=== PATIENT | male | born 1995 | race Caucasian/White ===

== ENCOUNTER 2018-07-16 16:31 | Emergency (ER) | payer OTHER, SELFPAY ==
[2018-07-16 16:35] VITALS: BP 135/82; PULSE 118; RESP 16; TEMP 36.3; O2SAT 99; BMI 31.2
--- NOTE | 2018-07-16 18:38 | DI.RAD.S_ITS ---
PROCEDURE: XR CHEST 1V INDICATIONS: chest pain TECHNIQUE: One view of the chest was acquired. COMPARISON: None. FINDINGS: Surgical changes and devices: None. Lungs and pleura: No pleural effusions or pneumothorax. Lungs are clear. Mediastinum: Mediastinal contours appear normal. Heart size is normal. Bones and chest wall: No suspicious bony lesions. Overlying soft tissues appear unremarkable. IMPRESSION: No acute cardiopulmonary disease. Dictated by: Sathish Razo M.D. on 07/16/2018 at 19:43 Approved by: Sathish Razo M.D. on 07/16/2018 at 19:45
[2018-07-16 18:49] VITALS: BP 124/76; PULSE 54; RESP 18; O2SAT 100
[2018-07-16 19:10] LABS: Add Manual Diff / Slide Review NO; Basophils Percent Auto 0.6 % (0-2); Eosinophils Percent Auto 1.9 % (2-4); Hematocrit 45.2 % (41-53); Hemoglobin 15.6 g/dL (13.5-17.5); Lymphocytes Percent Auto 38.1 % (25-40); Mean Corpuscular HGB Conc 34.5 % (30-36); Mean Corpuscular Hemoglobin 31.7 PG (26-34); Monocytes Percent Auto 11.5 % (3-14); Neutrophils Absolute Auto 3200 /uL (3000-5900); Neutrophils Percent Auto 47.9 % (50-75); Platelet Count 170 X10^3/uL (150-400); Red Blood Cell Count 4.91 X10^6/uL (4.5-5.9); Red Cell Distribution Width 13.2 % (11.6-14.8); White Blood Cell Count 6.6 X10^3/uL (4.5-11.0)
[2018-07-16 19:19] LABS: INR 1.1 (0.9-1.3); Prothrombin Time 11.7 SECONDS (10.1-12.7)
[2018-07-16 19:22] LABS: PTT Partial Thromboplastin Tim 30 SECONDS (26.4-36.2)
[2018-07-16 19:27] LABS: Alanine Aminotransferase 28 IU/L (21-72); Albumin 4.4 g/dL (3.5-5.0); Albumin Globulin Ratio 1.6 (1.0-2.8); Alkaline Phosphatase 38 U/L (38-126); Aspartate Aminotransferase 29 IU/L (17-59); Bilirubin Total 0.5 mg/dL (0.2-1.3); Blood Urea Nitrogen 22 mg/dL (9-20); Calcium 9.4 mg/dL (8.4-10.2); Carbon Dioxide 28 mmol/L (22-32); Chloride 103 mmol/L (98-107); Creatine Kinase 287 U/L (55-170); Estimated Glomerular Filt Rate > 60.0 mL/min (>60); Globulin 2.8 g/dL (1.7-4.1); Glucose 84 mg/dL (70-100); HEMOLYSIS < 15 (0-50); Lipase 93 U/L (23-300); Potassium 4.2 mmol/L (3.4-5.1); Sodium 143 mmol/L (137-145); Total Protein 7.2 g/dL (6.3-8.2)
[2018-07-16 19:42] LABS: Troponin I < 0.012 ng/mL (0.01-0.034)
[2018-07-16 19:44] LABS: CKMB % Relative Index 0.2 % (1.5-5.0); Creatine Kinase MB 0.71 ng/mL (<2.37)
--- NOTE | 2018-07-16 20:13 | ED_ITS ---
HPI - Chest Pain <LOLI Hua - Last Filed: 07/16/18 22:18> General Chief Complaint: Chest Pain Stated Complaint: CHEST PAIN Time Seen by Provider: 07/16/18 20:13 Source: patient Mode of arrival: ambulatory Limitations: no limitations History of Present Illness HPI narrative: 23 year old healthy male is an everyday smoker here for complaint of having a left-sided sternal chest pain for the last month. He reports he has had the pain on and off. he reports increased pain at times with strenuous activity and also stressed. He denies any relievers of the pain. He denies any shortness of breath. No fevers no chills. No nausea or vomiting. He denies any trauma to the chest wall. he is ambulatory to the emergency room. No other concerns or complaints at this time. Related Data Allergies Allergy/AdvReac Type Severity Reaction Status Date / Time No Known Drug Allergies Allergy Verified 07/16/18 16:50 Review of Systems <LOLI Hua - Last Filed: 07/16/18 22:18> Review of Systems All systems reviewed & are unremarkable except as noted in HPI and below Constitutional Denies chills, Denies fever(s), Denies lethargy and Denies weakness Eyes Denies change in vision, Denies eye discharge, Denies irritation and Denies loss of vision ENT Ears, Nose, Mouth, and Throat: Denies change in voice, Denies neck pain and Denies sore throat Cardiovascular Reports chest pain, Denies irregular heart rhythm, Denies lightheadedness, Denies palpitations, Denies dyspnea, Denies dyspnea on exertion and Denies orthopnea Respiratory Denies cough, Denies dyspnea, Denies dyspnea on exertion and Denies wheezing Gastrointestinal Gastrointestinal: Denies abdominal pain, Denies change in bowel habits, Denies diarrhea, Denies nausea and Denies vomiting Genitourinary Denies hematuria, Denies flank pain, Denies urinary incontinence and Denies urinary urgency Musculoskeletal Denies neck pain Integumentary/Breasts Denies pruritus, Denies erythema, Denies rash and Denies wounds Neurologic Denies confusion, Denies loss of vision and Denies weakness Psychiatric Denies anxiety, Denies confusion, Denies depression, Denies homicidal ideation and Denies suicidal ideation Endocrine Denies palpitations Hematologic/Lymphatic Denies easy bruising Allergic/Immunologic Denies wheezing Exam <LOLI Hua - Last Filed: 07/16/18 22:18> Initial Vital Signs Initial Vital Signs: Vital Signs Temperature 97.3 F L 07/16/18 16:35 Pulse Rate 118 H 07/16/18 16:35 Respiratory Rate 16 07/16/18 16:35 Blood Pressure 135/82 07/16/18 16:35 Pulse Oximetry 99 07/16/18 16:35 Const General: cooperative and well developed Nutritional Appearance: well nourished Orientation: alert, awake, oriented x3 and not confused HENMT Mouth: oral mucosae normal and moist mucous membranes Eyes Conjunctivae: conjunctivae normal Sclera: sclerae normal Pupils: PERRL EOM: EOM intact bilaterally Chest Chest: normal inspection of the chest Resp Effort & Inspection: normal respiratory effort, able to speak in complete sentences, no respiratory distress and no use of accessory muscles Auscultation: clear to auscultation bilaterally, no rales, no rhonchi and no wheezes Cardio Rate: regular rate Rhythm: regular rhythm Heart Sounds: no click, no gallops, no murmurs and no rubs Pulses: normal peripheral pulses Skin General: no rashes or lesions noted, No jaundice and No petechiae Neuro General: alert, oriented x3, gait normal and no focal motor deficits Speech: speech normal <Abner Ngo DO - Last Filed: 07/16/18 23:59> Initial Vital Signs Initial Vital Signs: Vital Signs Temperature 97.3 F L 07/16/18 16:35 Pulse Rate 118 H 07/16/18 16:35 Respiratory Rate 16 07/16/18 16:35 Blood Pressure 135/82 07/16/18 16:35 Pulse Oximetry 99 07/16/18 16:35 Scores <LOLI Hua - Last Filed: 07/16/18 22:18> HEART Score Heart Score history: Slightly Suspicious Heart Score EKG: Normal Heart Score Age: < 45 years old Heart Score risk factors: 1-2 risk factors Heart Score troponin: < or = to normal limit Heart Score Total: 1 Course <LOLI Hua Last Filed: 07/16/18 22:18> Orders Ordered: ED Orders 07/16/18 18:38 XR chest 1V Stat 09/28/18 18:52 Complete Blood Count AUTO DIFF Stat Comprehensive Metabolic Panel Stat Lipase Stat Partial Thromboplastin Time Stat Prothrombin Time INR Stat Troponin & CK Cardiac Panel Stat Vital Signs - 8 hr 07/16/18 16:35 07/16/18 18:49 07/16/18 20:40 Temperature 97.3 F L 98.6 F Pulse Rate 118 H 54 L 56 L Respiratory Rate 16 18 16 Blood Pressure 135/82 Blood Pressure [Left Arm] 124/76 106/52 L Pulse Oximetry 99 100 98 <Abner Ngo DO - Last Filed: 07/16/18 23:59> Orders Ordered: ED Orders 07/16/18 18:38 XR chest 1V Stat 07/16/18 18:52 Complete Blood Count AUTO DIFF Stat Comprehensive Metabolic Panel Stat Lipase Stat Partial Thromboplastin Time Stat Prothrombin Time INR Stat Troponin & CK Cardiac Panel Stat Vital Signs - 8 hr 07/16/18 16:35 07/16/18 18:49 07/16/18 20:40 Temperature 97.3 F L 98.6 F Pulse Rate 118 H 54 L 56 L Respiratory Rate 16 18 16 Blood Pressure 135/82 Blood Pressure [Left Arm] 124/76 106/52 L Pulse Oximetry 99 100 98 MDM - Chest Pain <LOLI Hua - Last Filed: 07/16/18 22:18> Lab Data Result diagrams: 07/16/18 18:52 07/16/18 18:52 Lab Results 07/16/18 07/16/18 07/16/18 Range/Units 18:52 18:52 18:52 WBC 6.6 (4.5-11.0) X10^3/uL RBC 4.91 (4.5-5.9) X10^6/uL Hgb 15.6 (13.5-17.5) g/dL Hct 45.2 (41-53) % MCV 92.0 (80-100) fL MCH 31.7 (26-34) PG MCHC 34.5 (30-36) % RDW 13.2 (11.6-14.8) % Plt Count 170 (150-400) X10^3/uL Neut % (Auto) 47.9 L (50-75) % Lymph % (Auto) 38.1 (25-40) % [place] % (Auto) 11.5 (3-14) % Eos % (Auto) 1.9 L (2-4) % Baso % (Auto) 0.6 (0-2) % Neut # (Auto) 3200 (8018-8547) /uL PT 11.7 (10.1-12.7) SECONDS INR 1.1 (0.9-1.3) APTT 30 (26.4-36.2) SECONDS Sodium 143 (137-145) mmol/L Potassium 4.2 (3.4-5.1) mmol/L Chloride 103 (98-107) mmol/L Carbon Dioxide 28 (22-32) mmol/L BUN 22 H (9-20) mg/dL Creatinine 1.10 (0.66-1.25) mg/dL Estimated GFR > 60.0 (>60) mL/min BUN/Creatinine Ratio 20.0 (6-22) Glucose 84 (70-100) mg/dL Calcium 9.4 (8.4-10.2) mg/dL Total Bilirubin 0.5 (0.2-1.3) mg/dL AST 29 (17-59) IU/L ALT 28 (21-72) IU/L Alkaline Phosphatase 38 (38-126) U/L Total Creatine Kinase 287 H (55-170) U/L CK-MB (CK-2) 0.71 (<2.37) ng/mL CK-MB (CK-2) Rel Index 0.2 L (1.5-5.0) % Troponin I < 0.012 (0.01-0.034) ng/mL Total Protein 7.2 (6.3-8.2) g/dL Albumin 4.4 (3.5-5.0) g/dL Globulin 2.8 (1.7-4.1) g/dL Albumin/Globulin Ratio 1.6 (1.0-2.8) Lipase 93 (23-300) U/L Imaging Data Chest x-ray: Radiologist's impression: Signed Patient: [facility]ES [facility]#: [id number] : 1995Acct:[id number] Age/Sex: 23 / MDate of Service: 07/16/18 Loc: ED Accession Number: [id number] Procedure: XR chest 1V Ordering Provider: Eloy Dillon PROCEDURE: XR CHEST 1V INDICATIONS: chest pain TECHNIQUE: One view of the chest was acquired. COMPARISON: None. FINDINGS: Surgical changes and devices: None. Lungs and pleura: No pleural effusions or pneumothorax. Lungs are clear. Mediastinum: Mediastinal contours appear normal. Heart size is normal. Bones and chest wall: No suspicious bony lesions. Overlying soft tissues appear unremarkable. IMPRESSION: No acute cardiopulmonary disease. Dictated by: Sathish Razo M.D. on 07/16/2018 at 19:43 Approved by: Sathish Razo M.D. on 07/16/2018 at 19:45 ECG Data Interpretation: EKG shows normal sinus rhythm with no ST elevation or depression. Ventricular rate is 68. PRl of 140. QRS of 101. QT of 395. MDM Narrative Medical decision making narrative: EKG shows sinus rhythm with no st elevation or depression. No ectopy. CBC and Chem panel were obtained were unremarkable heart score was 1 chest x-ray was negative for any acute findings. Cardiac enzymes were obtained were negative. Signs and symptoms symptoms present as chest wall pain will treat for costochondritis [id number] ibuprofen as needed for any discomfort. Follow up with primary care provider later this week. Breast area. For any worsening symptoms return to the emergency room. <Abner Ngo, DO - Last Filed: 07/16/18 23:59> Lab Data Lab Results 07/16/18 07/16/18 07/16/18 Range/Units 18:52 18:52 18:52 WBC 6.6 (4.5-11.0) X10^3/uL RBC 4.91 (4.5-5.9) X10^6/uL Hgb 15.6 (13.5-17.5) g/dL Hct 45.2 (41-53) % MCV 92.0 (80-100) fL MCH 31.7 (26-34) PG MCHC 34.5 (30-36) % RDW 13.2 (11.6-14.8) % Plt Count 170 (150-400) X10^3/uL Neut % (Auto) 47.9 L (50-75) % Lymph % (Auto) 38.1 (25-40) % [place] % (Auto) 11.5 (3-14) % Eos % (Auto) 1.9 L (2-4) % Baso % (Auto) 0.6 (0-2) % Neut # (Auto) 3200 (7868-4222) /uL PT 11.7 (10.1-12.7) SECONDS INR 1.1 (0.9-1.3) APTT 30 (26.4-36.2) SECONDS Sodium 143 (137-145) mmol/L Potassium 4.2 (3.4-5.1) mmol/L Chloride 103 (98-107) mmol/L Carbon Dioxide 28 (22-32) mmol/L BUN 22 H (9-20) mg/dL Creatinine 1.10 (0.66-1.25) mg/dL Estimated GFR > 60.0 (>60) mL/min BUN/Creatinine Ratio 20.0 (6-22) Glucose 84 (70-100) mg/dL Calcium 9.4 (8.4-10.2) mg/dL Total Bilirubin 0.5 (0.2-1.3) mg/dL AST 29 (17-59) IU/L ALT 28 (21-72) IU/L Alkaline Phosphatase 38 (38-126) U/L Total Creatine Kinase 287 H (55-170) U/L CK-MB (CK-2) 0.71 (<2.37) ng/mL CK-MB (CK-2) Rel Index 0.2 L (1.5-5.0) % Troponin I < 0.012 (0.01-0.034) ng/mL Total Protein 7.2 (6.3-8.2) g/dL Albumin 4.4 (3.5-5.0) g/dL Globulin 2.8 (1.7-4.1) g/dL Albumin/Globulin Ratio 1.6 (1.0-2.8) Lipase 93 (23-300) U/L Discharge Plan Departure Patient Disposition: Home Clinical Impression: Acute costochondritis Discharge Date/Time: 07/16/18 20:51 Interventions: ED Discharge Assessment Last Done: 07/16/18 20:50 Instructions: DI for Costochondritis Activity Restrictions/Additional Instructions: laboratory results chest x-ray and EKG today were unremarkable. Signs and symptoms presents as a pain into the anterior chest wall. Use [id number] ibuprofen as needed for any discomfort. Follow up with primary care provider next week for re-evaluation. For any worsening symptoms return to the emergency room. Referrals: [facility] [Provider Group] <Abner Ngo, DO - Last Filed: 07/16/18 23:59> Cosign ED Attending [place] Attestation: I was immediately available in the department for consultation. Documentation has been reviewed. I agree with assessment and plan.
[2018-07-16 20:40] VITALS: BP 106/52; PULSE 56; RESP 16; TEMP 37; O2SAT 98
== END 2018-07-16 20:51 | disposition home or self-care (01) ==
PROVIDERS: Emergency Provider Nurse Practitioner Family
DX: M94.0 Chondrocostal junction syndrome [Tietze] (principal)
CPT/HCPCS: 36415; 71045; 80053; 82550; 82553; 83690; 84484; 85025; 85610; 85730; 93005; 99282; 99285

== ENCOUNTER 2020-05-12 10:57 | Emergency (ER) | payer OTHER, SELFPAY ==
[2020-05-12 11:03] VITALS: BP 156/77; PULSE 60; RESP 14; TEMP 36.8; O2SAT 98
[2020-05-12] MEDS: BACITRACIN OINT 0.9 GM PCKT 1 APPLIC TOP (12:08)
[2020-05-12] MEDS: LIDO 1%/SOD BICARB 8.4% (10ML) 10 ML SYRINGE INJ (12:08)
--- NOTE | 2020-05-12 13:18 | ED_ITS ---
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 The patient reports has been in service for last 7 years and just returned from the deployment last than 1 year ago. Patient reports he has intact sensation and able to move affected arm without difficulty. Related Data Home Medications Medication Instructions Recorded Confirmed No Known Home Medications 05/12/20 05/12/20 Allergies Allergy/AdvReac Type Severity Reaction Status Date / Time No Known Drug Allergies Allergy Verified 05/12/20 11:05 Review of Systems <LOLI Kemp - Last Filed: 05/12/20 18:26> Review of Systems Narrative: General: Denies fever, chills, fatigue, malaise, sweats. HEENT: Denies sinus pain, ear pain, sore throat, difficulty swallowing, dizziness. Respiratory: Denies dyspnea, cough, wheezing, hemoptysis, sputum. Cardiovascular: Denies chest pain, palpitations, orthopnea, edema. Gastrointestinal: Denies nausea, vomiting, abdominal pain, diarrhea, constipation, melena. : Denies dysuria, frequency, incontinence, hematuria, urinary retention. Musculoskeletal: Denies weakness, joint pain or bony pain. Skin: See HPI Neurologic: Denies weakness, headache, numbness, change in speech, confusion, seizures, incoordination. Psychiatric: No concerning psychosocial issues. 12-point review of systems is negative except for those stated above. Patient History <LOLI Kemp - Last Filed: 05/12/20 18:26> Medical History (Updated 05/12/20 @ 18:20 by LOLI Kemp) No significant past medical history (Acute) Surgical History (Updated 05/12/20 @ 18:20 by LOLI Kemp) No pertinent past surgical history (Acute) Social History (Updated 05/12/20 @ 18:20 by LOLI Kemp) Smoking Status: Former smoker Smoking Status: Current every day smoker alcohol intake frequency: 0-2 drinks per day Substance Use Type: does not use Exam <LOLI Kemp - Last Filed: 05/12/20 18:26> Narrative Exam Narrative: General appearance: well developed, well nourished, in no acute distress. Head: normocephalic, atraumatic, no scalp lesions, non-tender. ENT: Hearing grossly intact. Airway patent. Neck/Thyroid: neck supple, full range of motion, no visible masses or meningeal signs. No JVD, non-tender without lymphadenopathy. Skin: 4cm deep laceration in right lateradal distal forearm. Slow oozing bleeding when pressure dressing removed. no suspicious rashes, lesions over other visible areas. Heart: no clubbing, no cyanosis, no edema. Lungs: Breathing even and unlabored. No stridor. No accessory muscles used. Able to speak in full sentences. Chest: normal shape and expansion. Abdomen: non-obese, non-distended. Neurologic: alert and oriented. Cognitive exam, [employer] and PNS grossly intact on informal exam. Psych: good eye contact, normal affect. Initial Vital Signs Initial Vital Signs: Vital Signs Temperature 98.2 F 05/12/20 11:03 Pulse Rate 60 05/12/20 11:03 Respiratory Rate 14 05/12/20 11:03 Blood Pressure 156/77 H 05/12/20 11:03 Pulse Oximetry 98 05/12/20 11:03 <Iván Gusman MD - Last Filed: 05/13/20 08:07> Initial Vital Signs Initial Vital Signs: Vital Signs Temperature 98.2 F 05/12/20 11:03 Pulse Rate 60 05/12/20 11:03 Respiratory Rate 14 05/12/20 11:03 Blood Pressure 156/77 H 05/12/20 11:03 Pulse Oximetry 98 05/12/20 11:03 Procedures <LOLI Kemp - Last Filed: 05/12/20 18:26> Laceration Repair Laceration 1: Site: upper extremity Side (If applicable): right Size (cm): 4 Description: linear Depth: simple, single layer Local Anesthetic: lidocaine 1% and with bicarb Amount of anesthesia used (mL): 4 Pre-repair: wound explored and irrigated extensively Skin layer closed with: nylon Size (cm): 4-0 Number of sutures: 5 Technique: simple, interrupted Subcutaneous layer closed with: vicryl Size: 4-0 Number of sutures: 2 Technique: simple, interrupted Scores [facility] - Last Filed: 05/12/20 18:26> GCS Mariam coma scale eye opening: Spontaneous Mariam coma scale verbal response: Orientated Mariam coma scale motor response: Obey commands Mariam coma scale total score: 15 Course <[facility] - Last Filed: 05/12/20 18:26> Orders Ordered: Discontinued Medications Bacitracin (Bacitracin) 1 applic TOP NOW ONE Stop: 05/12/20 11:55 Last Admin: 05/12/20 12:08 Dose: 1 applic Documented by: SOCORRO Lidocaine/Sodium Bicarbonate (Buffered Lidocaine 10 Ml Syr) 10 ml INJ NOW ONE Stop: 05/12/20 11:55 Last Admin: 05/12/20 12:08 Dose: 10 ml Documented by: SOCORRO Vital Signs Vital signs: Vital Signs - 8 hr 05/12/20 11:03 05/12/20 13:30 Temperature 98.2 F Pulse Rate 60 52 L Respiratory Rate 14 16 Blood Pressure 156/77 H 138/65 Pulse Oximetry 98 100 <Iván Gusman MD - Last Filed: 05/13/20 08:07> Orders Ordered: Discontinued Medications Bacitracin (Bacitracin) 1 applic TOP NOW ONE Stop: 05/12/20 11:55 Last Admin: 05/12/20 12:08 Dose: 1 applic Documented by: SOCORRO Lidocaine/Sodium Bicarbonate (Buffered Lidocaine 10 Ml Syr) 10 ml INJ NOW ONE Stop: 05/12/20 11:55 Last Admin: 05/12/20 12:08 Dose: 10 ml Documented by: SOCORRO Vital Signs Vital signs: Vital Signs - 8 hr 05/12/20 11:03 05/12/20 13:30 Temperature 98.2 F Pulse Rate 60 52 L Respiratory Rate 14 16 Blood Pressure 156/77 H 138/65 Pulse Oximetry 98 100 MDM - Skin/Abscess/Foreign Bdy <LOLI Kemp - Last Filed: 05/12/20 18:26> Differential Diagnosis Differential diagnosis: Likely other (laceration in forearm) Medical Records Attestation: I reviewed the patient's medical records. MDM Narrative Medical decision making narrative: This is a 25-year-old male who presents to ED with 4 cm deep laceration on right lateral distal forearm by a sharp metal edge from the washer door 1 hour prior to ED. Patient is unsure of last tetanus immunization but patient has been in service for last 7 years with deployment history, it is likely his tetanus status is up-to-date. The patient was advised to follow up with clinic on Thursday to confirm this. Patient is able to move right forearm and distal to injury without difficulty. Intact sensation distally. No obvious foreign body has been seen. X-ray test is deferred since there is no bony point tenderness to palpate and mechanism of injury is not traumatic. Laceration has been repaired with 2 absorbable suture with 5 simple interrupted suture. Please see procedure note. Wound has been irrigated with copious water and Hibiclens soap. Wound care at home and return precautions were discussed with patient and patient verbalized the understanding and agreement with the treatment plan. Discharge Plan Departure Patient Disposition: Home Clinical Impression: Laceration Discharge Date/Time: 05/12/20 13:30 Instructions: DI for Laceration Repair -- Complex Activity Restrictions/Additional Instructions: You have been diagnosed with [4 cm the laceration to right forearm from a metal. Please check her tetanus status with medical on Thursday.]. What to do: *Take your medications as directed. You can take OTC Tylenol and or Motrin as needed for discomfort. Please do not get your wound soaked in the water until suture removal. Keep your dressing intact for next 24 hrs. After then, you could remove your dressing, wash with soap and water. Pat dry with clean paper towel and dress it with antibiotic ointment. You can change dressing as needed and daily. Please monitor for signs and symptoms for infection such as increasing redness, swelling, warmth, pain, fever, purulent discharge. If this occurs, please return to ED or follow up with your primary care physician since your wound may be gotten infected. Please follow up with your primary care provider in 2-3 days for recheck wound. Your suture should be removed [ 7-10 ] days. This can be done by your primary provider, walk-in clinic or here in ED. Please keep your wound clean, dry and intact all times. Prescriptions: No Action No Known Home Medications RF: 0 Referrals: [facility] [Outside]
[2020-05-12 13:30] VITALS: BP 138/65; PULSE 52; RESP 16; O2SAT 100
== END 2020-05-12 13:30 | disposition home or self-care (01) ==
PROVIDERS: Emergency Provider Nurse Practitioner Family
DX: S51.811A Laceration without foreign body of right forearm, initial encounter (principal); W26.8XXA Contact with other sharp object(s), not elsewhere classified, initial encounter
CPT/HCPCS: 12002; 99283